=== PATIENT | female | born 1995 | race Caucasian/White ===

== ENCOUNTER 2021-03-10 12:27 | Inpatient (IN) | payer MEDICAID ==
[~2021-03-10] VITALS: Ht 149.9 cm; Wt 65.0 kg
[2021-03-10 14:34] LABS: AMPHET/METH SCREEN,URINE NEGATIVE (NEGATIVE); BARBITURATE SCREEN, URINE NEGATIVE (NEGATIVE); BENZODIAZEPINES SCREEN,URINE NEGATIVE (NEGATIVE); CANNABINOID SCREEN,URINE NEGATIVE (NEGATIVE); COCAINE SCREEN,URINE NEGATIVE (NEGATIVE); METHADONE SCREEN, URINE NEGATIVE (NEGATIVE); OPIATE SCREEN,URINE NEGATIVE (NEGATIVE); PHENCYCLIDINE SCREEN,URINE NEGATIVE (NEGATIVE)
[2021-03-10 16:10] LABS: COVID AG,FIA SOURCE NASOPHARYNGEAL
[2021-03-10] MEDS ORDERED: HydrOXYzine PAMOATE 50 MG CAPSULE PO PRN (16:45)
[2021-03-10] MEDS ORDERED: CYANOCOBALAMIN 1,000 MCG/ML VIAL IM ONE (16:45)
[2021-03-10] MEDS ORDERED: ZOLPIDEM TARTRATE 10 MG TABLET PO PRN (16:45)
[2021-03-10] MEDS ORDERED: QUEtiapine FUMARATE 100 MG TABLET PO PRN (16:45)
[2021-03-10] MEDS ORDERED: MAGNESIUM HYDROXIDE SUSPENSION 30 ML UDCUP PO PRN (16:45)
[2021-03-10] MEDS ORDERED: TUBERCULIN, PURIFIED PROTEIN DERIVATIVE 5 TU/0.1 ML SYRINGE ID ONE (16:45)
[2021-03-10] MEDS ORDERED: LORazepam 2 MG TABLET PO PRN (16:45)
[2021-03-10] MEDS ORDERED: PROMETHAZINE HCL 25 MG TABLET PO PRN (16:45)
[2021-03-10] MEDS ORDERED: LOPERAMIDE HCL 2 MG CAPSULE PO PRN (16:45)
[2021-03-10] MEDS ORDERED: GuaiFENesin/D-METHORPHAN [SUGAR-FREE] 200-20MG/10 ML SYRUP UDCUP PO PRN (16:45)
[2021-03-10] MEDS ORDERED: ACETAMINOPHEN 325 MG TABLET PO PRN (16:45)
[2021-03-10 17:04] LABS: BASOPHILS % (AUTO) 0.7 % (0.0-2.0); EOSINOPHILS % (AUTO) 2.3 % (1.0-6.0); HEMATOCRIT 40.5 % (36-46); HEMOGLOBIN 13.4 g/dL (12.0-16.0); LYMPHOCYTES # (AUTO) 1.8 K/uL (1.0-4.8); LYMPHOCYTES % (AUTO) 21.7 % (22.0-44.0); MEAN CORPUSCULAR HEMOGLOBIN 29.9 pg (26.0-34.0); MEAN CORPUSCULAR HGB CONC 33.1 G/dL (31.0-37.0); MEAN CORPUSCULAR VOLUME 91 fL (80-100); MONOCYTES # (AUTO) 0.6 K/uL (0.1-1.0); MONOCYTES % (AUTO) 6.9 % (2.0-9.0); NEUTROPHILS # (AUTO) 5.6 K/uL (1.8-7.7); NEUTROPHILS % (AUTO) 68.4 % (40.0-70.0); PLATELET COUNT (AUTO) 181 K/uL (150-450); RED BLOOD CELL COUNT(AUTO) 4.47 MIL/uL (4.00-5.20); RED CELL DISTRIBUTION WIDTH 13.6 % (11.5-14.5)
[2021-03-10 17:13] LABS: ANION GAP 6 mmol/L (8-16); CALCIUM, TOTAL 8.7 mg/dL (8.8-10.5); CARBON DIOXIDE 28 mmol/L (22-29); CHLORIDE 104 mmol/L (98-107); CREATININE 0.58 mg/dL (0.60-1.30); GLOMERULAR FILTR. RATE CALC > 60 mL/min (>60); GLUCOSE,RANDOM 92 mg/dL (70-110); POTASSIUM 3.6 mmol/L (3.5-5.1); SODIUM SERUM 138 mmol/L (136-145); UREA NITROGEN, BLOOD 7 mg/dL (7-18)
[2021-03-10 17:20] LABS: ALANINE AMINOTRANSFERASE 25 U/L (12-78); ALBUMIN 3.9 g/dL (3.4-5.0); ALKALINE PHOSPHATASE 113 U/L (46-116); ASPARTATE AMINOTRANSFERASE 14 U/L (15-37); BILIRUBIN,TOTAL 0.2 mg/dL (0.1-1.0); TOTAL PROTEIN, SERUM 7.8 g/dL (6.4-8.2)
[2021-03-10 20:15] VITALS: BP 120/72
[2021-03-10] MEDS ORDERED: OLANZapine 5 MG RAPDIS TABLET PO SCH (21:00)
[2021-03-11 00:15] VITALS: BP 125/82
[2021-03-11] MEDS: MAG HYDROX/AL HYDROX/SIMETH ES 30 ML SUSPENSION UDCUP PO PRN ×2 (00:25→09:13)
[2021-03-11 06:57] LABS: HEMOGLOBIN A1C 5.2 % (3.8-5.6)
[2021-03-11 07:25] LABS: CHOL/HDL RATIO 4.7 (3.9-5.7); CHOLESTEROL 225 mg/dL (131-200); FREE T4 (FREE THYROXINE) 0.88 ng/dL (0.76-1.46); HDL CHOLESTEROL 48 mg/dL (40-60); LDL CHOL (CALC.) 131 mg/dL (0-130); THYROID STIMULATING HORMONE 1.83 uIU/mL (0.36-3.74); TRIGLYCERIDES 230 mg/dL (15-150)
[2021-03-11] MEDS: FLUoxetine HCL 20 MG CAPSULE PO SCH ×2 (09:00→09:11)
[2021-03-11] MEDS: NALTREXONE HCL 50 MG TABLET PO SCH ×2 (09:00→09:11)
[2021-03-11] MEDS: FOLIC ACID 1 MG TABLET PO SCH (09:11)
[2021-03-11] MEDS: MULTIVITAMINS WITH MINERALS, THERAPEUTIC TABLET PO SCH (09:12)
[2021-03-11] MEDS: THIAMINE 100 MG TABLET PO SCH ×3 (09:12→17:28)
[2021-03-11] MEDS: OMEGA-3/DHA/EPA/FISH OIL 1,000 MG CAPSULE PO SCH (09:12)
[2021-03-11 12:03] LABS: HCG,QUANTITATIVE < 1 mIU/mL (0-6)
[2021-03-11 16:34] VITALS: BP 110/75
[2021-03-11] MEDS: MELATONIN 5 MG TABLET PO SCH (20:38)
[2021-03-12 08:58] VITALS: BP 105/63
[2021-03-12] MEDS: LamoTRIgine 25 MG TABLET PO SCH (09:34)
[2021-03-12] MEDS: FOLIC ACID 1 MG TABLET PO SCH (09:35)
[2021-03-12] MEDS: OMEGA-3/DHA/EPA/FISH OIL 1,000 MG CAPSULE PO SCH (09:35)
[2021-03-12] MEDS: MULTIVITAMINS WITH MINERALS, THERAPEUTIC TABLET PO SCH (09:35)
[2021-03-12] MEDS: THIAMINE 100 MG TABLET PO SCH ×2 (09:35→17:37)
[2021-03-12] MEDS: FLUoxetine HCL 20 MG CAPSULE PO SCH (09:46)
[2021-03-12] MEDS: NALTREXONE HCL 50 MG TABLET PO SCH (09:46)
[2021-03-12 16:00] VITALS: BP 112/76
[2021-03-12] MEDS: FAMOTIDINE 20 MG TABLET PO SCH (21:35)
[2021-03-12] MEDS: MELATONIN 5 MG TABLET PO SCH (21:36)
[2021-03-12] MEDS: OLANZapine 10 MG RAPDIS TABLET PO SCH (21:36)
[2021-03-13 08:00] VITALS: BP 99/59
[2021-03-13] MEDS: FOLIC ACID 1 MG TABLET PO SCH (09:12)
[2021-03-13] MEDS: FLUoxetine HCL 20 MG CAPSULE PO SCH (09:12)
[2021-03-13] MEDS: OMEGA-3/DHA/EPA/FISH OIL 1,000 MG CAPSULE PO SCH (09:12)
[2021-03-13] MEDS: MULTIVITAMINS WITH MINERALS, THERAPEUTIC TABLET PO SCH (09:12)
[2021-03-13] MEDS: NALTREXONE HCL 50 MG TABLET PO SCH (09:13)
[2021-03-13] MEDS: LamoTRIgine 25 MG TABLET PO SCH (09:13)
[2021-03-13] MEDS: THIAMINE 100 MG TABLET PO SCH ×2 (09:13→16:31)
[2021-03-13] MEDS: FAMOTIDINE 20 MG TABLET PO SCH ×2 (09:13→20:11)
[2021-03-13 16:25] VITALS: BP 98/58
[2021-03-13] MEDS: OLANZapine 10 MG RAPDIS TABLET PO SCH (20:11)
[2021-03-13] MEDS: MELATONIN 5 MG TABLET PO SCH (20:11)
[2021-03-14 08:36] VITALS: BP 107/77
[2021-03-14] MEDS: NALTREXONE HCL 50 MG TABLET PO SCH (09:45)
[2021-03-14] MEDS: MULTIVITAMINS WITH MINERALS, THERAPEUTIC TABLET PO SCH (09:45)
[2021-03-14] MEDS: THIAMINE 100 MG TABLET PO SCH ×2 (09:46→16:08)
[2021-03-14] MEDS: FLUoxetine HCL 20 MG CAPSULE PO SCH (09:46)
[2021-03-14] MEDS: FOLIC ACID 1 MG TABLET PO SCH (09:46)
[2021-03-14] MEDS: LamoTRIgine 25 MG TABLET PO SCH (09:47)
[2021-03-14] MEDS: FAMOTIDINE 20 MG TABLET PO SCH ×2 (09:47→20:13)
[2021-03-14] MEDS: OMEGA-3/DHA/EPA/FISH OIL 1,000 MG CAPSULE PO SCH (09:47)
[2021-03-14] MEDS: LURASIDONE HCL 40 MG TABLET PO SCH (16:32)
[2021-03-14] MEDS ORDERED: QUEtiapine FUMARATE 25 MG TABLET PO PRN (16:45)
[2021-03-14] MEDS ORDERED: LORazepam 0.5 MG TABLET PO PRN (16:45)
[2021-03-14] MEDS ORDERED: ZOLPIDEM TARTRATE 5 MG TABLET PO PRN (16:45)
[2021-03-14 17:32] VITALS: BP 104/68
[2021-03-15 08:00] VITALS: BP 138/78
[2021-03-15] MEDS: MULTIVITAMINS WITH MINERALS, THERAPEUTIC TABLET PO SCH (09:45)
[2021-03-15] MEDS: LamoTRIgine 25 MG TABLET PO SCH (09:46)
[2021-03-15] MEDS: THIAMINE 100 MG TABLET PO SCH ×2 (09:46→16:14)
[2021-03-15] MEDS: OMEGA-3/DHA/EPA/FISH OIL 1,000 MG CAPSULE PO SCH (09:46)
[2021-03-15] MEDS: FLUoxetine HCL 20 MG CAPSULE PO SCH (09:46)
[2021-03-15] MEDS: FOLIC ACID 1 MG TABLET PO SCH (09:47)
[2021-03-15] MEDS: NALTREXONE HCL 50 MG TABLET PO SCH (09:47)
[2021-03-15] MEDS: FAMOTIDINE 20 MG TABLET PO SCH ×2 (09:47→20:14)
[2021-03-15] MEDS: LURASIDONE HCL 40 MG TABLET PO SCH (16:14)
[2021-03-15 16:56] VITALS: BP 134/70
[2021-03-16 08:14] VITALS: BP 98/62
[2021-03-16] MEDS: MULTIVITAMINS WITH MINERALS, THERAPEUTIC TABLET PO SCH (08:49)
[2021-03-16] MEDS: OMEGA-3/DHA/EPA/FISH OIL 1,000 MG CAPSULE PO SCH (08:49)
[2021-03-16] MEDS: NALTREXONE HCL 50 MG TABLET PO SCH (08:50)
[2021-03-16] MEDS: LamoTRIgine 25 MG TABLET PO SCH (08:50)
[2021-03-16] MEDS: FOLIC ACID 1 MG TABLET PO SCH (08:50)
[2021-03-16] MEDS: FLUoxetine HCL 20 MG CAPSULE PO SCH (08:50)
[2021-03-16] MEDS: FAMOTIDINE 20 MG TABLET PO SCH ×2 (08:50→20:13)
[2021-03-16] MEDS: THIAMINE 100 MG TABLET PO SCH ×2 (08:50→16:19)
[2021-03-16 12:54] LABS: COVID AG,FIA SOURCE NASAL SWAB
[2021-03-16] MEDS: LURASIDONE HCL 40 MG TABLET PO SCH (16:19)
[2021-03-16 16:20] VITALS: BP 111/74
[2021-03-16 17:10] VITALS: BP 111/74
[2021-03-17 08:00] VITALS: BP 116/76
[2021-03-17] MEDS: OMEGA-3/DHA/EPA/FISH OIL 1,000 MG CAPSULE PO SCH (08:33)
[2021-03-17] MEDS: MULTIVITAMINS WITH MINERALS, THERAPEUTIC TABLET PO SCH (08:33)
[2021-03-17] MEDS: FAMOTIDINE 20 MG TABLET PO SCH (08:33)
[2021-03-17] MEDS: FOLIC ACID 1 MG TABLET PO SCH (08:33)
[2021-03-17] MEDS: FLUoxetine HCL 20 MG CAPSULE PO SCH (08:34)
[2021-03-17] MEDS: NALTREXONE HCL 50 MG TABLET PO SCH (08:34)
[2021-03-17] MEDS: THIAMINE 100 MG TABLET PO SCH ×2 (08:34→16:18)
[2021-03-17] MEDS: LamoTRIgine 25 MG TABLET PO SCH (08:34)
[2021-03-17] MEDS ORDERED: LAMO25TA66 PO (12:15)
[2021-03-17] MEDS ORDERED: NALT50TA PO (12:15)
[2021-03-17] MEDS ORDERED: OMEG-135 PO (12:15)
[2021-03-17] MEDS ORDERED: LURA40TA2 PO (12:15)
[2021-03-17] MEDS ORDERED: MELA5TAB40 PO (12:15)
[2021-03-17] MEDS ORDERED: FLUO20CA36 PO (12:15)
[2021-03-17] MEDS ORDERED: FAMO20 PO (13:08)
[2021-03-17] MEDS: LURASIDONE HCL 40 MG TABLET PO SCH (16:18)
== END 2021-03-17 16:00 | disposition home or self-care (01) | DRG 750 ==
LOC: EMS 12:27 → 3EI 19:00
PROVIDERS: ADMIT Psychiatry & Neurology Psychiatry; ATTEND Psychiatry & Neurology Psychiatry
DX: F25.1 Schizoaffective disorder, depressive type (principal); R45.851 Suicidal ideations; Z91.19 Patient's noncompliance with other medical treatment and regimen; F25.0 Schizoaffective disorder, bipolar type; E78.5 Hyperlipidemia, unspecified; F12.90 Cannabis use, unspecified, uncomplicated; F31.9 Bipolar disorder, unspecified; Z55.9 Problems related to education and literacy, unspecified; Z65.3 Problems related to other legal circumstances; Z59.9 Problem related to housing and economic circumstances, unspecified
CPT/HCPCS: 80053; 80061; 83036; 84439; 84443; 84702; 85025; 86592; 99285; G0480; Q9967

== ENCOUNTER 2021-05-05 17:29 | Inpatient (IN) | payer MEDICAID ==
[~2021-05-05] VITALS: Ht 149.9 cm; Wt 62.6 kg
[~2021-05-05 17:29] MED LIST: FAMO20 PO; FLUO20CA36 PO; LAMO25TA66 PO; LURA40TA2 PO; MELA5TAB40 PO; NALT50TA PO; OMEG-135 PO
[2021-05-05] MEDS ORDERED: LORazepam 2 MG TABLET PO PRN ×2 (23:00→23:45)
[2021-05-05] MEDS ORDERED: ZOLPIDEM TARTRATE 10 MG TABLET PO PRN ×2 (23:00→23:45)
[2021-05-05] MEDS ORDERED: OLANZapine 5 MG RAPDIS TABLET PO PRN ×2 (23:00→23:45)
[2021-05-05] MEDS ORDERED: ACETAMINOPHEN 325 MG TABLET PO PRN (23:45)
[2021-05-05] MEDS ORDERED: GuaiFENesin/D-METHORPHAN [SUGAR-FREE] 200-20MG/10 ML SYRUP UDCUP PO PRN (23:45)
[2021-05-05] MEDS ORDERED: LOPERAMIDE HCL 2 MG CAPSULE PO PRN (23:45)
[2021-05-05] MEDS ORDERED: MAGNESIUM HYDROXIDE SUSPENSION 30 ML UDCUP PO PRN (23:45)
[2021-05-05] MEDS ORDERED: PROMETHAZINE HCL 25 MG TABLET PO PRN (23:45)
[2021-05-05] MEDS ORDERED: HydrOXYzine PAMOATE 50 MG CAPSULE PO PRN (23:45)
[2021-05-05] MEDS ORDERED: MAG HYDROX/AL HYDROX/SIMETH ES 30 ML SUSPENSION UDCUP PO PRN (23:45)
[2021-05-05] MEDS ORDERED: INFLUENZA VIRUS VACCINE QVS 2021-22 (6MO+)/PF 60 MCG/0.5 ML SYRINGE IM. ONE (23:45)
[2021-05-06 02:57] VITALS: BP 98/61
[2021-05-06 03:08] VITALS: BP 98/61
[2021-05-06] MEDS: LURASIDONE HCL 40 MG TABLET PO SCH (07:03)
[2021-05-06 07:41] LABS: HEMOGLOBIN A1C 4.9 % (3.8-5.6)
[2021-05-06 07:46] LABS: CHOL/HDL RATIO 3.9 (3.9-5.7); CHOLESTEROL 225 mg/dL (131-200); HCG,QUANTITATIVE < 1 mIU/mL (0-6); HDL CHOLESTEROL 57 mg/dL (40-60); LDL CHOL (CALC.) 153 mg/dL (0-130); THYROID STIMULATING HORMONE 1.36 uIU/mL (0.36-3.74); TRIGLYCERIDES 76 mg/dL (15-150)
[2021-05-06 08:24] LABS: ALANINE AMINOTRANSFERASE 18 U/L (12-78); ALBUMIN 3.6 g/dL (3.4-5.0); ALKALINE PHOSPHATASE 83 U/L (46-116); ANION GAP 8 mmol/L (8-16); ASPARTATE AMINOTRANSFERASE 10 U/L (15-37); BILIRUBIN,TOTAL 0.3 mg/dL (0.1-1.0); CALCIUM, TOTAL 8.4 mg/dL (8.8-10.5); CARBON DIOXIDE 27 mmol/L (22-29); CHLORIDE 105 mmol/L (98-107); CREATININE 0.66 mg/dL (0.60-1.30); GLOMERULAR FILTR. RATE CALC > 60 mL/min (>60); GLUCOSE,RANDOM 87 mg/dL (70-110); POTASSIUM 3.4 mmol/L (3.5-5.1); SODIUM SERUM 140 mmol/L (136-145); TOTAL PROTEIN, SERUM 7.4 g/dL (6.4-8.2); UREA NITROGEN, BLOOD 11 mg/dL (7-18)
[2021-05-06] MEDS: OMEGA-3/DHA/EPA/FISH OIL 1,000 MG CAPSULE PO SCH (09:08)
[2021-05-06] MEDS: MULTIVITAMINS WITH MINERALS, THERAPEUTIC TABLET PO SCH (09:08)
[2021-05-06] MEDS: NALTREXONE HCL 50 MG TABLET PO SCH (09:08)
[2021-05-06] MEDS: FLUoxetine HCL 20 MG CAPSULE PO SCH (09:08)
[2021-05-06] MEDS: THIAMINE 100 MG TABLET PO SCH ×2 (09:08→16:25)
[2021-05-06] MEDS: LamoTRIgine 25 MG TABLET PO SCH (09:08)
[2021-05-06] MEDS: FOLIC ACID 1 MG TABLET PO SCH (09:08)
[2021-05-06] MEDS ORDERED: POTASSIUM CHLORIDE 10 MEQ ER TABLET PO ONE (11:45)
[2021-05-06 12:28] VITALS: BP 105/57
[2021-05-06] MEDS ORDERED: NALT50TA PO (15:27)
[2021-05-06] MEDS ORDERED: MELA5TAB40 PO (15:27)
[2021-05-06] MEDS ORDERED: LAMO25TA66 PO (15:27)
[2021-05-06] MEDS ORDERED: LURA40TA2 PO (15:27)
[2021-05-06] MEDS ORDERED: PROZ20 PO (15:27)
[2021-05-06] MEDS ORDERED: OMEG-135 PO (15:27)
[2021-05-06 16:14] VITALS: BP 103/64
[2021-05-06] MEDS: FAMOTIDINE 20 MG TABLET PO SCH (20:49)
[2021-05-06] MEDS ORDERED: MELATONIN 5 MG TABLET PO SCH (21:00)
[2021-05-07 05:09] VITALS: BP 108/71
[2021-05-07] MEDS: LURASIDONE HCL 40 MG TABLET PO SCH (07:24)
[2021-05-07 08:09] LABS: ANION GAP 6 mmol/L (8-16); CALCIUM, TOTAL 8.7 mg/dL (8.8-10.5); CARBON DIOXIDE 31 mmol/L (22-29); CHLORIDE 106 mmol/L (98-107); CREATININE 0.56 mg/dL (0.60-1.30); GLOMERULAR FILTR. RATE CALC > 60 mL/min (>60); GLUCOSE,RANDOM 81 mg/dL (70-110); POTASSIUM 3.7 mmol/L (3.5-5.1); SODIUM SERUM 143 mmol/L (136-145); UREA NITROGEN, BLOOD 8 mg/dL (7-18)
[2021-05-07 08:19] VITALS: BP 109/71
[2021-05-07] MEDS ORDERED: FLUO20CA36 PO (08:22)
[2021-05-07] MEDS ORDERED: LURA40TA2 PO (08:23)
[2021-05-07] MEDS: FLUoxetine HCL 20 MG CAPSULE PO SCH (08:33)
[2021-05-07] MEDS: LamoTRIgine 25 MG TABLET PO SCH (08:33)
[2021-05-07] MEDS: THIAMINE 100 MG TABLET PO SCH (08:33)
[2021-05-07] MEDS: FAMOTIDINE 20 MG TABLET PO SCH (08:33)
[2021-05-07] MEDS: OMEGA-3/DHA/EPA/FISH OIL 1,000 MG CAPSULE PO SCH (08:33)
[2021-05-07] MEDS: MULTIVITAMINS WITH MINERALS, THERAPEUTIC TABLET PO SCH (08:33)
[2021-05-07] MEDS: FOLIC ACID 1 MG TABLET PO SCH (08:33)
[2021-05-07] MEDS: NALTREXONE HCL 50 MG TABLET PO SCH (08:33)
== END 2021-05-07 10:00 | disposition home or self-care (01) | DRG 751 ==
LOC: B2S 23:06
PROVIDERS: ADMIT Psychiatry & Neurology Psychiatry; ATTEND Psychiatry & Neurology Psychiatry
DX: F33.2 Major depressive disorder, recurrent severe without psychotic features (principal); F70 Mild intellectual disabilities; E78.5 Hyperlipidemia, unspecified; E87.6 Hypokalemia; K21.9 Gastro-esophageal reflux disease without esophagitis; Z55.9 Problems related to education and literacy, unspecified; Z59.9 Problem related to housing and economic circumstances, unspecified; Z63.9 Problem related to primary support group, unspecified; Z65.3 Problems related to other legal circumstances; Z91.19 Patient's noncompliance with other medical treatment and regimen
CPT/HCPCS: 80048; 80053; 80061; 83036; 84439; 84443; 84702; 86592; 87081; Q9967

== ENCOUNTER 2022-07-20 13:06 | Inpatient (IN) | payer MEDICAID ==
[~2022-07-20] VITALS: Ht 149.9 cm; Wt 64.4 kg
[~2022-07-20 13:06] MED LIST changes: -FAMO20 PO
[2022-07-20 17:26] LABS: BASOPHILS % (AUTO) 0.2 % (0.0-2.0); HEMATOCRIT 42.3 % (36-46); HEMOGLOBIN 13.9 g/dL (12.0-16.0); LYMPHOCYTES # (AUTO) 2.3 K/uL (1.0-4.8); LYMPHOCYTES % (AUTO) 23.5 % (22.0-44.0); MEAN CORPUSCULAR HEMOGLOBIN 30.5 pg (26.0-34.0); MEAN CORPUSCULAR HGB CONC 32.9 G/dL (31.0-37.0); MEAN CORPUSCULAR VOLUME 93 fL (80-100); MONOCYTES # (AUTO) 0.5 K/uL (0.1-1.0); MONOCYTES % (AUTO) 5.1 % (2.0-9.0); NEUTROPHILS # (AUTO) 6.9 K/uL (1.8-7.7); NEUTROPHILS % (AUTO) 70.2 % (40.0-70.0); PLATELET COUNT (AUTO) 233 K/uL (150-450); RED BLOOD CELL COUNT(AUTO) 4.56 MIL/uL (4.00-5.20); RED CELL DISTRIBUTION WIDTH 13.8 % (11.5-14.5)
[2022-07-20 17:37] LABS: ANION GAP 10 mmol/L (8-16); CALCIUM, TOTAL 8.8 mg/dL (8.8-10.5); CARBON DIOXIDE 24 mmol/L (22-29); CHLORIDE 102 mmol/L (98-107); CREATININE 0.62 mg/dL (0.60-1.30); GLUCOSE,RANDOM 89 mg/dL (70-110); POTASSIUM 3.6 mmol/L (3.5-5.1); SODIUM SERUM 136 mmol/L (136-145); UREA NITROGEN, BLOOD 9 mg/dL (7-18)
[2022-07-20 17:47] LABS: GLOMERULAR FILTR. RATE CALC > 60 mL/min (>60)
[2022-07-20 17:48] LABS: ALANINE AMINOTRANSFERASE 21 U/L (12-78); ALBUMIN 4.3 g/dL (3.4-5.0); ALKALINE PHOSPHATASE 98 U/L (46-116); ASPARTATE AMINOTRANSFERASE 17 U/L (15-37); BILIRUBIN,TOTAL 0.5 mg/dL (0.1-1.0); HCG,QUANTITATIVE < 1 mIU/mL (0-6); TOTAL PROTEIN, SERUM 8.5 g/dL (6.4-8.2)
[2022-07-20 18:04] LABS: AMPHET/METH SCREEN,URINE NEGATIVE (NEGATIVE); BARBITURATE SCREEN, URINE NEGATIVE (NEGATIVE); BENZODIAZEPINES SCREEN,URINE NEGATIVE (NEGATIVE); CANNABINOID SCREEN,URINE NEGATIVE (NEGATIVE); COCAINE SCREEN,URINE NEGATIVE (NEGATIVE); METHADONE SCREEN, URINE NEGATIVE (NEGATIVE); OPIATE SCREEN,URINE NEGATIVE (NEGATIVE)
[2022-07-20 18:05] LABS: PHENCYCLIDINE SCREEN,URINE NEGATIVE (NEGATIVE)
[2022-07-20] MEDS ORDERED: HydrOXYzine PAMOATE 50 MG CAPSULE PO PRN (18:15)
[2022-07-20] MEDS ORDERED: LURASIDONE HCL 20 MG TABLET PO PRN (18:15)
[2022-07-20] MEDS ORDERED: TUBERCULIN, PURIFIED PROTEIN DERIVATIVE 5 TU/0.1 ML SYRINGE ID ONE (18:15)
[2022-07-20] MEDS ORDERED: MAGNESIUM HYDROXIDE SUSPENSION 30 ML UDCUP PO PRN (18:15)
[2022-07-20] MEDS ORDERED: GuaiFENesin/D-METHORPHAN [SUGAR-FREE] 200-20MG/10 ML SYRUP UDCUP PO PRN (18:15)
[2022-07-20] MEDS ORDERED: MAG HYDROX/AL HYDROX/SIMETH ES 30 ML SUSPENSION UDCUP PO PRN (18:15)
[2022-07-20] MEDS ORDERED: LORazepam 2 MG TABLET PO PRN (18:15)
[2022-07-20] MEDS ORDERED: ZOLPIDEM TARTRATE 10 MG TABLET PO PRN (18:15)
[2022-07-20] MEDS ORDERED: ACETAMINOPHEN 325 MG TABLET PO PRN (18:15)
[2022-07-20] MEDS ORDERED: LOPERAMIDE HCL 2 MG CAPSULE PO PRN (18:15)
[2022-07-20] MEDS ORDERED: PROMETHAZINE HCL 25 MG TABLET PO PRN (18:15)
[2022-07-20 18:45] LABS: COVID AG,FIA SOURCE NASOPHARYNGEAL
[2022-07-20] MEDS ORDERED: LURASIDONE HCL 60 MG TABLET PO SCH (21:00)
[2022-07-20] MEDS: THIAMINE 100 MG TABLET PO SCH (22:59)
[2022-07-20] MEDS: LURASIDONE HCL 40 MG TABLET PO SCH (22:59)
[2022-07-20] MEDS: MELATONIN 5 MG TABLET PO SCH (22:59)
[2022-07-21 01:13] VITALS: BP 108/71
[2022-07-21 07:51] LABS: CHOL/HDL RATIO 3.3 (3.9-5.7); FREE T4 (FREE THYROXINE) 0.98 ng/dL (0.76-1.46); THYROID STIMULATING HORMONE 2.02 uIU/mL (0.36-3.74)
[2022-07-21] MEDS: NALTREXONE HCL 50 MG TABLET PO SCH (08:41)
[2022-07-21] MEDS: FOLIC ACID 1 MG TABLET PO SCH (08:41)
[2022-07-21] MEDS: LamoTRIgine 25 MG TABLET PO SCH (08:41)
[2022-07-21] MEDS: OMEGA-3/DHA/EPA/FISH OIL 1,000 MG CAPSULE PO SCH (08:41)
[2022-07-21] MEDS: THIAMINE 100 MG TABLET PO SCH ×2 (08:41→16:41)
[2022-07-21] MEDS: FLUoxetine HCL 20 MG CAPSULE PO SCH (08:41)
[2022-07-21] MEDS: MULTIVITAMINS WITH MINERALS, THERAPEUTIC TABLET PO SCH (08:41)
[2022-07-21] MEDS ORDERED: PALIPERIDONE PALMITATE 234 MG/1.5 ML SYRINGE IM ONE (09:00)
[2022-07-21 20:07] VITALS: BP 122/76
[2022-07-21] MEDS: LURASIDONE HCL 40 MG TABLET PO SCH (20:39)
[2022-07-21] MEDS: MELATONIN 5 MG TABLET PO SCH (20:39)
[2022-07-21] MEDS ORDERED: PERMETHRIN 5% 60 GM CREAM TP ONE (21:00)
[2022-07-22 08:11] VITALS: BP 131/57
[2022-07-22] MEDS: THIAMINE 100 MG TABLET PO SCH ×2 (08:36→16:39)
[2022-07-22] MEDS: FLUoxetine HCL 20 MG CAPSULE PO SCH (08:36)
[2022-07-22] MEDS: NALTREXONE HCL 50 MG TABLET PO SCH (08:36)
[2022-07-22] MEDS: FOLIC ACID 1 MG TABLET PO SCH (08:36)
[2022-07-22] MEDS: LamoTRIgine 25 MG TABLET PO SCH (08:36)
[2022-07-22] MEDS: MULTIVITAMINS WITH MINERALS, THERAPEUTIC TABLET PO SCH (08:36)
[2022-07-22] MEDS: OMEGA-3/DHA/EPA/FISH OIL 1,000 MG CAPSULE PO SCH (08:36)
[2022-07-22 20:10] VITALS: BP 100/67
[2022-07-22] MEDS: LURASIDONE HCL 40 MG TABLET PO SCH (20:32)
[2022-07-22] MEDS: MELATONIN 5 MG TABLET PO SCH (20:33)
[2022-07-22] MEDS ORDERED: LAMO25TA25 PO (21:22)
[2022-07-22] MEDS ORDERED: MELA5TAB40 PO (21:22)
[2022-07-22] MEDS ORDERED: OMEG-135 PO (21:22)
[2022-07-22] MEDS ORDERED: FLUO20CA36 PO (21:22)
[2022-07-22] MEDS ORDERED: LURA40TA2 PO (21:22)
[2022-07-22] MEDS ORDERED: NALT50TA PO (21:22)
[2022-07-23] MEDS: OMEGA-3/DHA/EPA/FISH OIL 1,000 MG CAPSULE PO SCH (08:02)
[2022-07-23] MEDS: FOLIC ACID 1 MG TABLET PO SCH (08:02)
[2022-07-23] MEDS: THIAMINE 100 MG TABLET PO SCH (08:03)
[2022-07-23] MEDS: FLUoxetine HCL 20 MG CAPSULE PO SCH (08:03)
[2022-07-23] MEDS: NALTREXONE HCL 50 MG TABLET PO SCH (08:03)
[2022-07-23] MEDS: LamoTRIgine 25 MG TABLET PO SCH (08:03)
[2022-07-23] MEDS: MULTIVITAMINS WITH MINERALS, THERAPEUTIC TABLET PO SCH (08:03)
[2022-07-23 08:16] VITALS: BP 110/69
[2022-07-23 14:06] LABS: HEPATITIS C AB (EIA) <0.1 s/co ratio (0.0-0.9)
[2022-07-25] MEDS ORDERED: PALIPERIDONE PALMITATE 156 MG/ML SYRINGE IM ONE (09:00)
== END 2022-07-23 13:00 | disposition home or self-care (01) | DRG 753 ==
LOC: EMS 13:11 → B2S 18:43
PROVIDERS: ADMIT Psychiatry & Neurology Psychiatry; ATTEND Psychiatry & Neurology Psychiatry
DX: F31.9 Bipolar disorder, unspecified (principal); F70 Mild intellectual disabilities; R45.851 Suicidal ideations; Z20.822 Contact with and (suspected) exposure to COVID-19; Z55.9 Problems related to education and literacy, unspecified; Z59.9 Problem related to housing and economic circumstances, unspecified; Z63.9 Problem related to primary support group, unspecified; Z65.3 Problems related to other legal circumstances; Z81.8 Family history of other mental and behavioral disorders; Z91.14 Patient's other noncompliance with medication regimen
CPT/HCPCS: 80053; 80061; 80307; 83036; 84439; 84443; 84702; 85025; 86592; 86803; 87340; 99285; G0480; Q9967; 36415-L1; 36415-TC; 90749; J2426; Z7502; Z7610